=== PATIENT | male | born 1995 | race Two or more races ===

== ENCOUNTER 2019-09-20 06:40 | Emergency (ER) | payer OTHER ==
[~2019-09-20] VITALS: Ht 172.7 cm; Wt 73.0 kg
[2019-09-20 06:44] VITALS: BP 145/96
--- NOTE | 2019-09-20 06:50 | NUR ---
SUTURE PACK AT BEDSIDE. PT SITTING UP IN BED, NAD NOTED AT THIS TIME. BANDAGE REMAINS IN PLACE. NO BLEEDING AT THIS TIME.
[2019-09-20] MEDS ORDERED: LIDOCAINE-MPF 1%, 5ML ONE (06:52)
[2019-09-20] MEDS ORDERED: LIDOCAINE-MPF 1%, 5ML INFIL ONE (07:00)
[2019-09-20] MEDS ORDERED: DIPH,PERTUSS(ACELL),TET VAC/PF 0.5 ML IM-VACC ONE ×2 (07:00→07:08)
--- NOTE | 2019-09-20 07:13 | NUR ---
lido 1% administered at this time by CHANDLER Chase.
[2019-09-20] MEDS ORDERED: NEOSPORIN OINT. PKT 1 PACKET ONE (07:36)
== END 2019-09-20 07:52 | disposition home or self-care (01) ==
LOC: ED 07:38
DX: S61.215A Laceration without foreign body of left ring finger without damage to nail, initial encounter (principal); X58.XXXA Exposure to other specified factors, initial encounter; Y93.89 Activity, other specified; Y92.69 Other specified industrial and construction area as the place of occurrence of the external cause; Y99.8 Other external cause status
CPT/HCPCS: 12041; 90471; 90715; 99284

== ENCOUNTER 2019-09-29 06:13 | Emergency (ER) | payer OTHER ==
[~2019-09-29] VITALS: Ht 175.3 cm; Wt 80.9 kg
[2019-09-29 06:14] VITALS: BP 152/95
--- NOTE | 2019-09-29 06:27 | NUR ---
PT CAME IN TODAY FOR SUTURE REMOVAL/RECHECK. PT FINGER WOUND IS WELL APPROXIMATED, CMS INTACT, NAD, NO DRAINAGE PUS OR SWELLING. WCTM. KYLAH KYLE AT BS FOR REMOVAL
--- NOTE | 2019-09-29 06:43 | NUR ---
Patient given discharge instructions and they have confirmed that they understand the instructions. Patient ambulatory with steady gait. DENIES ADDITIONAL QUESTIONS OR NEEDS AT THIS TIME. NAD. NO PT BELONGINGS LEFT IN ROOM AFTER DISCHARGE.
== END 2019-09-29 06:44 | disposition home or self-care (01) ==
LOC: ED 06:32
DX: S61.212D Laceration without foreign body of right middle finger without damage to nail, subsequent encounter (principal); X58.XXXD Exposure to other specified factors, subsequent encounter
CPT/HCPCS: 99282